=== PATIENT | female | born 1955 | race Two or more races ===

== ENCOUNTER 2019-08-30 11:04 | Emergency (ER) | payer MEDICAID ==
[~2019-08-30] VITALS: Ht 165.1 cm; Wt 102.0 kg
[~2019-08-30 11:04] MED LIST: AMLO10TA80 PO; LISI10TA5 PO; METF-416 PO; OXYB5TAB17 PO
[2019-08-30] MEDS ORDERED: KETOROLAC 30MG/ML VIAL IM ONE (11:30)
[2019-08-30 11:45] VITALS: BP 160/79
== END 2019-08-30 11:47 | disposition home or self-care (01) ==
LOC: ER 11:13
DX: M79.662 Pain in left lower leg (principal); M79.661 Pain in right lower leg; J45.909 Unspecified asthma, uncomplicated; E11.9 Type 2 diabetes mellitus without complications; I10 Essential (primary) hypertension; Z90.710 Acquired absence of both cervix and uterus; Z79.899 Other long term (current) drug therapy
CPT/HCPCS: 96372; 99283; J1885

== ENCOUNTER 2019-09-16 04:11 | Emergency (ER) | payer MEDICAID ==
[~2019-09-16] VITALS: Ht 165.1 cm; Wt 104.0 kg
[2019-09-16 04:16] VITALS: BP 165/175
[2019-09-16] MEDS ORDERED: DEXAMETHASONE 4MG/ML 1ML VIAL IM ONE (06:45)
[2019-09-16] MEDS ORDERED: KETOROLAC 60MG/2ML VIAL IM ONE (06:45)
== END 2019-09-16 08:02 | disposition home or self-care (01) ==
LOC: ER 04:11
DX: M54.42 Lumbago with sciatica, left side (principal)
CPT/HCPCS: 72100; 96372; 99284; J1100; J1885

== ENCOUNTER 2019-12-20 21:26 | Emergency (ER) | payer MEDICAID ==
[~2019-12-20] VITALS: Ht 165.1 cm; Wt 102.0 kg
[2019-12-20] MEDS ORDERED: IBUPROFEN 600MG TABLET PO ONE (22:30)
[2019-12-20 23:43] VITALS: BP 141/74
== END 2019-12-20 23:45 | disposition home or self-care (01) ==
LOC: ER 21:26
DX: J02.9 Acute pharyngitis, unspecified (principal); J45.909 Unspecified asthma, uncomplicated; Z91.041 Radiographic dye allergy status; Z79.899 Other long term (current) drug therapy
CPT/HCPCS: 87070; 87430; 99283

== ENCOUNTER 2019-12-31 03:25 | Emergency (ER) | payer OTHER ==
[2019-12-31 07:55] VITALS: BP 132/78
== END 2019-12-31 07:55 | disposition home or self-care (01) ==
LOC: ER 03:25
DX: K21.9 Gastro-esophageal reflux disease without esophagitis (principal); G89.29 Other chronic pain; M54.9 Dorsalgia, unspecified; J45.909 Unspecified asthma, uncomplicated; Z88.5 Allergy status to narcotic agent; Z91.041 Radiographic dye allergy status; Z79.899 Other long term (current) drug therapy
CPT/HCPCS: 71045; 93005; 99283

== ENCOUNTER → 2020-04-08 | Outpatient (CLI) | payer MEDICAID | END | disposition home or self-care (01) | LOC: LAB 08:58 | PROVIDERS: ATTEND Neurological Surgery | DX: Z01.812 Encounter for preprocedural laboratory examination (principal); Z20.828 Contact with and (suspected) exposure to other viral communicable diseases | CPT/HCPCS: 87426 ==

== ENCOUNTER 2020-04-11 05:20 | Inpatient (IN) | payer MEDICAID ==
[2020-04-11] VITALS (55 sets, daily range): BP systolic 75–259; BP diastolic 28–255
[~2020-04-11] VITALS: Ht 256.5 cm; Wt 101.2 kg
[2020-04-11] MEDS ORDERED: THROMBIN (BOVINE) 5000 UNITS/VIAL TOP ONE (06:17)
[2020-04-11] MEDS ORDERED: BACITRACIN 50,000 UNITS/VIAL ONE (06:18)
[2020-04-11] MEDS ORDERED: LACTATED RINGERS 1,000 ML IV SCH (06:25)
[2020-04-11] MEDS ORDERED: FENTANYL CITRATE/PF 50MCG/ML 2ML VIAL ONE (07:09)
[2020-04-11] MEDS ORDERED: CEFAZOLIN SODIUM 1000MG/VIAL ONE (07:10)
[2020-04-11] MEDS ORDERED: PHENYLEPHRINE HCL 10 MG/ML 1ML (IV VIAL) IV ONE (07:10)
[2020-04-11] MEDS ORDERED: LIDOCAINE HCL 2% JELLY 5ML ONE (07:10)
[2020-04-11] MEDS ORDERED: ONDANSETRON HCL 4MG/2ML INJ ONE (07:10)
[2020-04-11] MEDS ORDERED: PROPOFOL 200MG/20ML VIAL IV ONE (07:10)
[2020-04-11] MEDS ORDERED: METOCLOPRAMIDE HCL 10MG/2ML VIAL ONE (07:10)
[2020-04-11] MEDS ORDERED: MIDAZOLAM HCL 2 MG/2 ML VIAL ONE (07:10)
[2020-04-11] MEDS ORDERED: SODIUM CHLORIDE 0.9% 10ML VIAL ONE (07:10)
[2020-04-11] MEDS ORDERED: EPHEDRINE SULFATE 50MG/ML VIAL ONE (07:11)
[2020-04-11] MEDS ORDERED: LIDOCAINE HCL 1% 20ML VIAL (Pyxis) INJ ONE (07:13)
[2020-04-11] MEDS ORDERED: ROCURONIUM BROMIDE 10MG/ML VIAL 5ML IV ONE ×2 (07:17→08:27)
[2020-04-11] MEDS ORDERED: GLYCOPYRROLATE 0.2 MG/ML 2ML VIAL ONE (07:18)
[2020-04-11] MEDS ORDERED: NEOSTIGMINE METHYLSULFATE 1MG/ML 10 ML VIAL ONE (07:18)
[2020-04-11] MEDS ORDERED: HYDR-4001 PO (07:30)
[2020-04-11] MEDS ORDERED: COR3 PO (07:30)
[2020-04-11] MEDS ORDERED: ALBU90AE IH (07:30)
[2020-04-11] MEDS ORDERED: LISI40TA4 PO (07:30)
[2020-04-11] MEDS ORDERED: UMEC1DIS IH (07:30)
[2020-04-11] MEDS ORDERED: HYDROMORPHONE HCL/PF 2MG/ML CPJ IV PRN (09:45)
[2020-04-11] MEDS ORDERED: ONDANSETRON HCL 4MG/2ML INJ IV PRN (09:45)
[2020-04-11] MEDS: DEXT 5%/LACTATED RINGERS 1,000 ML IV SCH ×2 (10:34→20:45)
[2020-04-11] MEDS ORDERED: HYDROMORPHONE PCA 10MG/50ML IV PRN (10:45)
[2020-04-11] MEDS ORDERED: ONDANSETRON INJ IV PRN (10:45)
[2020-04-11] MEDS ORDERED: NALOXONE INJ IV PRN (10:45)
[2020-04-11] MEDS ORDERED: IPRATROPIUM/ALBUTEROL 0.5-3(2.5)MG/3ML NEB HHN PRN (12:15)
[2020-04-11] MEDS: DEXAMETHASONE 4MG/ML 1ML VIAL IV SCH ×3 (12:30→23:07)
[2020-04-11] MEDS ORDERED: CEFAZOLIN SODIUM 1000MG/VIAL IV SCH (14:00)
[2020-04-11] MEDS: CEFAZOLIN 1000MG PREMIX 50 ML IV SCH (14:13)
[2020-04-11] MEDS: NICARDIPINE 100 MG in SODIUM CHLORIDE 0.9% 60 ML IV PRN ×2 (14:24→23:07)
[2020-04-11] MEDS ORDERED: CEFAZOLIN 1000MG PREMIX 50 ML IV SCH (15:00)
[2020-04-11] MEDS: GUAIFENESIN-DM 200MG-20MG/10ML UDC PO PRN ×2 (15:06→23:07)
[2020-04-11 15:13] LABS: BASOPHILS % 0.5 % (0.0-2.0); CHLORIDE 106 mEq/L (98-107); HEMATOCRIT. 34.8 % (36.0-48.0); HEMOGLOBIN. 11.3 g/dL (12.0-16.0); LYMPHOCYTES % 12.7 % (20.0-50.0); MEAN CORPUSCULAR HEMOGLOBIN 27.6 pg (28.0-32.0); MEAN CORPUSCULAR VOLUME 85.1 fL (81.0-99.0); MEAN PLATELET VOLUME 8.3 fl (7.4-10.4); MONOCYTES % 3.4 % (2.0-8.0); NEUTROPHILS % 83.4 % (40.0-76.0); PLATELET 341 x1000/uL (130-400); RED BLOOD CELL COUNT 4.09 mill/uL (4.2-5.4); RED CELL DISTRIBUTION WIDTH 15.2 % (11.6-14.6)
[2020-04-11] MEDS ORDERED: DEXTROSE 50% WATER 50ML SYRINGE IV PRN (17:00)
[2020-04-11] MEDS: BLOOD SUGAR DIAGNOSTIC STRIP TEST SCH ×2 (18:10→20:33)
[2020-04-11] MEDS: INSULIN LISPRO 100 UNITS/ML SUBCUT SCH ×2 (18:21→20:39)
[2020-04-11] MEDS: CARVEDILOL 3.125 MG TABLET PO SCH (20:40)
[2020-04-11] MEDS: IPRATROPIUM/ALBUTEROL 0.5-3(2.5)MG/3ML NEB HHN SCH (21:05)
[2020-04-12] VITALS (117 sets, daily range): BP systolic 0–281; BP diastolic 0–279
[2020-04-12] MEDS: CEFAZOLIN 1000MG PREMIX 50 ML IV SCH ×2 (00:08→06:52)
[2020-04-12] MEDS: DIPHENHYDRAMINE INJ IV PRN ×3 (00:18→17:40)
[2020-04-12] MEDS: GUAIFENESIN-DM 200MG-20MG/10ML UDC PO PRN (02:30)
[2020-04-12] MEDS: IPRATROPIUM/ALBUTEROL 0.5-3(2.5)MG/3ML NEB HHN SCH ×4 (06:40→21:14)
[2020-04-12] MEDS: BLOOD SUGAR DIAGNOSTIC STRIP TEST SCH ×4 (06:50→21:00)
[2020-04-12] MEDS: DEXAMETHASONE 4MG/ML 1ML VIAL IV SCH ×2 (06:52→11:26)
[2020-04-12] MEDS: INSULIN LISPRO 100 UNITS/ML SUBCUT SCH ×4 (07:05→21:39)
[2020-04-12 07:26] LABS: BASOPHILS % 0.1 % (0.0-2.0); EOSINOPHILS % 0.1 % (0.0-5.0); HEMATOCRIT. 34.8 % (36.0-48.0); HEMOGLOBIN. 11.4 g/dL (12.0-16.0); LYMPHOCYTES % 8.2 % (20.0-50.0); MEAN CORPUSCULAR HEMOGLOBIN 27.7 pg (28.0-32.0); MEAN CORPUSCULAR VOLUME 84.7 fL (81.0-99.0); MEAN PLATELET VOLUME 8.4 fl (7.4-10.4); MONOCYTES % 2.6 % (2.0-8.0); PLATELET 362 x1000/uL (130-400); RED BLOOD CELL COUNT 4.11 mill/uL (4.2-5.4); RED CELL DISTRIBUTION WIDTH 14.8 % (11.6-14.6)
[2020-04-12] MEDS: MORPHINE SULFATE 2 MG/ML CPJ (NOT FOR IM USE) IV PRN ×3 (08:29→17:41)
[2020-04-12] MEDS: AMLODIPINE 10MG TABLET PO SCH (08:30)
[2020-04-12] MEDS: CARVEDILOL 3.125 MG TABLET PO SCH ×2 (08:30→21:31)
[2020-04-12] MEDS: LISINOPRIL 40MG TABLET PO SCH (08:30)
[2020-04-12 08:39] LABS: CHLORIDE 100 mEq/L (98-107)
[2020-04-12 08:45] LABS: PHOSPHORUS 3.5 mg/dL (2.5-4.9)
[2020-04-12 08:46] LABS: LDL CHOLESTEROL 96 mg/dL (5-100); TOTAL IRON BINDING CAPACITY 343 ug/dL (250-450)
[2020-04-12 08:47] LABS: HDL CHOLESTEROL 65 mg/dL (40-59)
[2020-04-12 09:15] LABS: FOLIC ACID (FOLATE) SERUM 12.2 ng/mL (>5.38)
[2020-04-12] MEDS: PROMETHAZINE/DEXTROMETHORPHAN 6.25-15MG/5ML BOTTLE 120ML PO PRN ×2 (10:57→17:45)
[2020-04-12] MEDS ORDERED: PREDNISONE 20MG TABLET PO SCH (11:30)
[2020-04-12] MEDS ORDERED: RACEPINEPHRINE 2.25% 0.5ML NEB VIAL HHN NR (11:37)
[2020-04-12] MEDS: UMECLIDINIUM BROMIDE 1 INH BLST.W.DEV IH SCH (17:45)
[2020-04-12] MEDS: ONDANSETRON HCL 4MG/2ML INJ IV PRN (18:15)
[2020-04-12] MEDS ORDERED: IRON SUCROSE COMPLEX 100 MG/5 ML ML IV NR (20:30)
[2020-04-12] MEDS: DEXT 5%/LACTATED RINGERS 1,000 ML IV SCH (21:29)
[2020-04-13] VITALS (151 sets, daily range): BP systolic 70–155; BP diastolic 46–97
[2020-04-13] MEDS: MORPHINE SULFATE 2 MG/ML CPJ (NOT FOR IM USE) IV PRN ×5 (00:47→22:11)
[2020-04-13] MEDS: DIPHENHYDRAMINE INJ IV PRN ×5 (00:47→22:11)
[2020-04-13] MEDS: ONDANSETRON HCL 4MG/2ML INJ IV PRN ×4 (00:47→22:11)
[2020-04-13] MEDS: IPRATROPIUM/ALBUTEROL 0.5-3(2.5)MG/3ML NEB HHN SCH ×3 (00:52→20:40)
[2020-04-13] MEDS: NICARDIPINE 100 MG in SODIUM CHLORIDE 0.9% 60 ML IV PRN (02:23)
[2020-04-13] MEDS: PROMETHAZINE/DEXTROMETHORPHAN 6.25-15MG/5ML BOTTLE 120ML PO PRN ×3 (02:24→20:54)
[2020-04-13 06:59] LABS: BASOPHILS % 0.2 % (0.0-2.0); HEMATOCRIT. 35.9 % (36.0-48.0); HEMOGLOBIN. 11.9 g/dL (12.0-16.0); LYMPHOCYTES % 7.5 % (20.0-50.0); MEAN CORPUSCULAR HEMOGLOBIN 28.3 pg (28.0-32.0); MEAN CORPUSCULAR VOLUME 85.9 fL (81.0-99.0); MEAN PLATELET VOLUME 8.3 fl (7.4-10.4); MONOCYTES % 5.2 % (2.0-8.0); NEUTROPHILS % 87.1 % (40.0-76.0); PLATELET 402 x1000/uL (130-400); RED BLOOD CELL COUNT 4.18 mill/uL (4.2-5.4); RED CELL DISTRIBUTION WIDTH 14.9 % (11.6-14.6)
[2020-04-13 07:17] LABS: CHLORIDE 100 mEq/L (98-107)
[2020-04-13] MEDS: BLOOD SUGAR DIAGNOSTIC STRIP TEST SCH ×4 (07:30→20:52)
[2020-04-13 07:32] LABS: T4 FREE 1.38 ng/dL (0.76-1.46)
[2020-04-13] MEDS: UMECLIDINIUM BROMIDE 1 INH BLST.W.DEV IH SCH (08:51)
[2020-04-13] MEDS: CARVEDILOL 3.125 MG TABLET PO SCH ×2 (08:52→20:53)
[2020-04-13] MEDS: AMLODIPINE 10MG TABLET PO SCH (08:52)
[2020-04-13] MEDS: LISINOPRIL 40MG TABLET PO SCH (08:53)
[2020-04-13] MEDS: INSULIN LISPRO 100 UNITS/ML SUBCUT SCH ×4 (08:54→21:01)
[2020-04-13] MEDS ORDERED: DIAZEPAM 5 MG TABLET PO SCH (10:00)
[2020-04-13] MEDS: PREDNISONE 20MG TABLET PO SCH ×2 (10:34→18:27)
[2020-04-13] MEDS: DEXT 5%/LACTATED RINGERS 1,000 ML IV SCH ×2 (11:45→22:16)
[2020-04-13] MEDS: DOCUSATE SODIUM 100MG CAPSULE PO SCH (17:00)
[2020-04-14] VITALS (97 sets, daily range): BP systolic 103–180; BP diastolic 47–126
[2020-04-14] MEDS: IPRATROPIUM/ALBUTEROL 0.5-3(2.5)MG/3ML NEB HHN SCH ×2 (00:39→04:30)
[2020-04-14] MEDS: MORPHINE SULFATE 2 MG/ML CPJ (NOT FOR IM USE) IV PRN ×3 (01:25→14:14)
[2020-04-14] MEDS: ONDANSETRON HCL 4MG/2ML INJ IV PRN ×3 (01:25→14:13)
[2020-04-14] MEDS: BLOOD SUGAR DIAGNOSTIC STRIP TEST SCH ×4 (07:30→21:44)
[2020-04-14 07:36] LABS: BASOPHILS % 0.9 % (0.0-2.0); HEMOGLOBIN. 11.4 g/dL (12.0-16.0); LYMPHOCYTES % 7.9 % (20.0-50.0); MEAN CORPUSCULAR HEMOGLOBIN 27.7 pg (28.0-32.0); MEAN CORPUSCULAR VOLUME 85.1 fL (81.0-99.0); MEAN PLATELET VOLUME 8.3 fl (7.4-10.4); MONOCYTES % 4.1 % (2.0-8.0); NEUTROPHILS % 87.1 % (40.0-76.0); PLATELET 365 x1000/uL (130-400); RED BLOOD CELL COUNT 4.12 mill/uL (4.2-5.4); RED CELL DISTRIBUTION WIDTH 15.1 % (11.6-14.6)
[2020-04-14 08:00] LABS: CHLORIDE 104 mEq/L (98-107)
[2020-04-14] MEDS ORDERED: CLONIDINE 0.1MG TABLET PO PRN (08:00)
[2020-04-14] MEDS: PREDNISONE 20MG TABLET PO SCH ×2 (09:11→18:23)
[2020-04-14] MEDS: DOCUSATE SODIUM 100MG CAPSULE PO SCH ×2 (09:11→18:24)
[2020-04-14] MEDS: AMLODIPINE 10MG TABLET PO SCH (09:12)
[2020-04-14] MEDS: LISINOPRIL 40MG TABLET PO SCH (09:18)
[2020-04-14] MEDS: CARVEDILOL 3.125 MG TABLET PO SCH ×2 (09:18→21:41)
[2020-04-14] MEDS: UMECLIDINIUM BROMIDE 1 INH BLST.W.DEV IH SCH (09:19)
[2020-04-14] MEDS: INSULIN LISPRO 100 UNITS/ML SUBCUT SCH ×4 (10:07→22:38)
[2020-04-14] MEDS ORDERED: HYDROCODONE/ACETAMINOPHEN 5/325MG TABLET PO PRN (16:45)
[2020-04-14] MEDS: TRAMADOL 50MG TABLET PO PRN (18:30)
[2020-04-14] MEDS: PROMETHAZINE/DEXTROMETHORPHAN 6.25-15MG/5ML BOTTLE 120ML PO PRN (21:42)
[2020-04-15] VITALS (7 sets, daily range): BP systolic 105–152; BP diastolic 57–69
[2020-04-15] MEDS: TRAMADOL 50MG TABLET PO PRN ×2 (04:16→12:26)
[2020-04-15] MEDS: BLOOD SUGAR DIAGNOSTIC STRIP TEST SCH ×2 (07:21→11:51)
[2020-04-15] MEDS: INSULIN LISPRO 100 UNITS/ML SUBCUT SCH ×2 (07:50→11:51)
[2020-04-15 07:52] LABS: BASOPHILS % 0.8 % (0.0-2.0); HEMATOCRIT. 36.9 % (36.0-48.0); HEMOGLOBIN. 11.9 g/dL (12.0-16.0); LYMPHOCYTES % 16.2 % (20.0-50.0); MEAN CORPUSCULAR HEMOGLOBIN 27.3 pg (28.0-32.0); MEAN CORPUSCULAR VOLUME 84.9 fL (81.0-99.0); MEAN PLATELET VOLUME 7.9 fl (7.4-10.4); MONOCYTES % 5.7 % (2.0-8.0); NEUTROPHILS % 77.3 % (40.0-76.0); PLATELET 389 x1000/uL (130-400); RED BLOOD CELL COUNT 4.34 mill/uL (4.2-5.4); RED CELL DISTRIBUTION WIDTH 14.7 % (11.6-14.6)
[2020-04-15 08:04] LABS: CHLORIDE 101 mEq/L (98-107)
[2020-04-15] MEDS: LISINOPRIL 40MG TABLET PO SCH (09:40)
[2020-04-15] MEDS: DOCUSATE SODIUM 100MG CAPSULE PO SCH (09:40)
[2020-04-15] MEDS: AMLODIPINE 10MG TABLET PO SCH (09:40)
[2020-04-15] MEDS: PREDNISONE 20MG TABLET PO SCH (09:40)
[2020-04-15] MEDS: CARVEDILOL 3.125 MG TABLET PO SCH (09:40)
[2020-04-15] MEDS ORDERED: PHEN177S41 MT (11:08)
[2020-04-15] MEDS ORDERED: GUAI600T44 MT (11:08)
[2020-04-15] MEDS ORDERED: P20 MT (11:08)
[2020-04-15] MEDS ORDERED: BENZ-16 MT (11:08)
[2020-04-15] MEDS: PROMETHAZINE/DEXTROMETHORPHAN 6.25-15MG/5ML BOTTLE 120ML PO PRN (11:40)
[2020-04-15] MEDS: UMECLIDINIUM BROMIDE 1 INH BLST.W.DEV IH SCH (11:40)
== END 2020-04-15 17:13 | disposition home or self-care (01) | DRG 321 ==
LOC: OR 05:20 → 5EST 05:21 → 6EST 04-14 18:17
PROVIDERS: ADMIT Neurological Surgery; ATTEND Neurological Surgery
PROC: 0RG20A0 Fusion of 2 or more Cervical Vertebral Joints with Interbody Fusion Device, Anterior Approach, Anterior Column, Open Approach (ICD-10-PCS; principal; 2020-04-11)
PROC: 0RB30ZZ Excision of Cervical Vertebral Disc, Open Approach (ICD-10-PCS; 2020-04-11)
PROC: 01N10ZZ Release Cervical Nerve, Open Approach (ICD-10-PCS; 2020-04-11)
PROC: 4A11X4G Monitoring of Peripheral Nervous Electrical Activity, Intraoperative, External Approach (ICD-10-PCS; 2020-04-11)
DX: M47.12 Other spondylosis with myelopathy, cervical region (principal); G82.50 Quadriplegia, unspecified; I10 Essential (primary) hypertension; E66.9 Obesity, unspecified; D64.9 Anemia, unspecified; R13.10 Dysphagia, unspecified; E11.9 Type 2 diabetes mellitus without complications; M47.22 Other spondylosis with radiculopathy, cervical region; J45.909 Unspecified asthma, uncomplicated; M25.78 Osteophyte, vertebrae; Z79.84 Long term (current) use of oral hypoglycemic drugs; Z90.711 Acquired absence of uterus with remaining cervical stump; Z68.1 Body mass index [BMI] 19.9 or less, adult
CPT/HCPCS: 36415; 71045; 72040; 72141; 76000; 80048; 80053; 80061; 82607; 82728; 82746; 82962; 83036; 83540; 83550; 83735; 84100; 84439; 84443; 84481; 85025; 86850; 86900; 88311; 97110; 97116; 97162; 97166; 97530; 97535; C1713; J0690; J1100; J1170; J1200; J1815; J2250; J2270; J2370; J2405; J2704; J2710; J2765; J3010; J3490; J7050; J7121; J7512; L0172; C1762

== ENCOUNTER 2020-06-20 12:35 | Inpatient (IN) | payer MEDICAID ==
[~2020-06-20] VITALS: Ht 167.6 cm; Wt 108.9 kg
[~2020-06-20 12:35] MED LIST changes: +ALBU90AE IH; +BENZ-16 MT; +COR3 PO; +GUAI600T44 MT; -LISI10TA5 PO; +LISI40TA13 PO; -OXYB5TAB17 PO; +P20 MT; +PHEN177S41 MT; +UMEC1DIS IH
[2020-06-20] MEDS ORDERED: METHOCARBAMOL 500MG TABLET PO ONE (13:45)
[2020-06-20] MEDS ORDERED: GADOTERATE MEGLUMINE 5 MMOL/10 ML VIAL IV ONE (14:05)
[2020-06-20 14:07] LABS: EOSINOPHILS % 0.4 % (0.0-5.0); HEMOGLOBIN. 13.3 g/dL (12.0-16.0); LYMPHOCYTES % 34.6 % (20.0-50.0); MEAN CORPUSCULAR HEMOGLOBIN 28.3 pg (28.0-32.0); MEAN CORPUSCULAR VOLUME 87.2 fL (81.0-99.0); MEAN PLATELET VOLUME 7.9 fl (7.4-10.4); MONOCYTES % 3.4 % (2.0-8.0); NEUTROPHILS % 60.6 % (40.0-76.0); PLATELET 329 x1000/uL (130-400); RED CELL DISTRIBUTION WIDTH 15.5 % (11.6-14.6)
[2020-06-20 14:14] LABS: CHLORIDE 100 mEq/L (98-107)
[2020-06-20] MEDS ORDERED: MORPHINE SULFATE 4 MG/ML CPJ (NOT FOR IM USE) IV ONE (15:45)
[2020-06-20 16:12] LABS: INR 1.1; PARTIAL THROMBOPLASTIN TIME 23.7 sec (23.4-31.0); PROTHROMBIN TIME 11.9 sec (9.6-11.0)
[2020-06-20] MEDS ORDERED: GUAIFENESIN 200MG/10ML SUGAR FREE UDC PO PRN (20:30)
[2020-06-20] MEDS ORDERED: NA PHOS,M-B/NA PHOS,DI-BA ENEMA 118ML PR PRN (20:30)
[2020-06-20] MEDS ORDERED: DOCUSATE SODIUM 100MG CAPSULE PO PRN (20:30)
[2020-06-20] MEDS ORDERED: MORPHINE SULFATE 2 MG/ML CPJ (NOT FOR IM USE) IV PRN (20:30)
[2020-06-20] MEDS ORDERED: LORAZEPAM 2MG/ML CPJ IV PRN (20:30)
[2020-06-20] MEDS ORDERED: MAGNESIUM/ALUMINUM HYDROXIDE/SIMETHICONE 30ML UDC PO PRN (20:30)
[2020-06-20] MEDS ORDERED: ENOXAPARIN 40MG/0.4ML SYR SUBCUT SCH (20:30)
[2020-06-20] MEDS: DIPHENHYDRAMINE 50MG/ML VIAL IV PRN (20:32)
[2020-06-20] MEDS: ONDANSETRON HCL 4MG/2ML INJ IV PRN (20:34)
[2020-06-20] MEDS: ENOXAPARIN 30MG/0.3ML SYR SUBCUT SCH (20:36)
[2020-06-20 22:41] VITALS: BP 165/80
[2020-06-20] MEDS: CLONIDINE 0.1MG TABLET PO PRN (22:53)
[2020-06-20 23:09] LABS: CHLORIDE 103 mEq/L (98-107)
[2020-06-20] MEDS: HYDROMORPHONE HCL/PF 2MG/ML CPJ IV PRN (23:17)
[2020-06-21] VITALS: BP 111/63
[2020-06-21] MEDS ORDERED: DEXTROSE 50% WATER 50ML SYRINGE IV PRN (01:00)
[2020-06-21 01:26] LABS: CLARITY URINE CLEAR (CLEAR); COLOR URINE YELLOW (YELLOW); KETONES URINE TRACE (NEGATIVE); LEUKOCYTE ESTERASE URINE TRACE (NEGATIVE); NITRITE URINE NEGATIVE (NEGATIVE); OCCULT BLOOD URINE NEGATIVE (NEGATIVE); PROTEIN URINE NEGATIVE (NEGATIVE); SPECIFIC GRAVITY URINE 1.025 (1.005-1.030); UROBILINOGEN URINE 0.2 E.U./dL (0.2-1.0)
[2020-06-21] MEDS: HYDROMORPHONE HCL/PF 2MG/ML CPJ IV PRN ×7 (03:53→23:47)
[2020-06-21 04:00] VITALS: BP 119/62
[2020-06-21] MEDS: BLOOD SUGAR DIAGNOSTIC STRIP TEST SCH ×4 (05:41→20:34)
[2020-06-21] MEDS: INSULIN LISPRO 100 UNITS/ML SUBCUT SCH ×4 (06:15→20:40)
[2020-06-21 06:53] LABS: BASOPHILS % 0.3 % (0.0-2.0); EOSINOPHILS % 0.5 % (0.0-5.0); HEMATOCRIT. 36.7 % (36.0-48.0); HEMOGLOBIN. 12.1 g/dL (12.0-16.0); LYMPHOCYTES % 39.8 % (20.0-50.0); MEAN CORPUSCULAR HEMOGLOBIN 28.8 pg (28.0-32.0); MEAN CORPUSCULAR VOLUME 87.2 fL (81.0-99.0); MEAN PLATELET VOLUME 7.9 fl (7.4-10.4); MONOCYTES % 4.9 % (2.0-8.0); NEUTROPHILS % 54.5 % (40.0-76.0); PLATELET 324 x1000/uL (130-400); RED BLOOD CELL COUNT 4.21 mill/uL (4.2-5.4); RED CELL DISTRIBUTION WIDTH 15.5 % (11.6-14.6)
[2020-06-21 07:02] LABS: CHLORIDE 100 mEq/L (98-107)
[2020-06-21 07:40] LABS: HDL CHOLESTEROL 57 mg/dL (40-59); LDL CHOLESTEROL 77 mg/dL (5-100); T4 FREE 1.65 ng/dL (0.76-1.46)
[2020-06-21 08:00] VITALS: BP 171/85
[2020-06-21] MEDS: ENOXAPARIN 30MG/0.3ML SYR SUBCUT SCH (08:44)
[2020-06-21] MEDS: CLONIDINE 0.1MG TABLET PO PRN (08:45)
[2020-06-21 12:00] VITALS: BP 133/67
[2020-06-21 16:00] VITALS: BP 139/46
[2020-06-21] MEDS: DIPHENHYDRAMINE 50MG/ML VIAL IV PRN (19:38)
[2020-06-21 20:00] VITALS: BP 153/64
[2020-06-21] MEDS: FLUTICASONE/VILANTEROL 200-25 BLST.W.DEV ORI SCH (22:38)
[2020-06-22] VITALS (57 sets, daily range): BP systolic 97–159; BP diastolic 42–78
[2020-06-22] MEDS: DIPHENHYDRAMINE 50MG/ML VIAL IV PRN (00:35)
[2020-06-22] MEDS: HYDROMORPHONE HCL/PF 2MG/ML CPJ IV PRN ×4 (02:40→17:46)
[2020-06-22] MEDS: BLOOD SUGAR DIAGNOSTIC STRIP TEST SCH ×4 (06:15→20:54)
[2020-06-22] MEDS: INSULIN LISPRO 100 UNITS/ML SUBCUT SCH ×4 (06:23→21:02)
[2020-06-22 07:01] LABS: BASOPHILS % 0.7 % (0.0-2.0); EOSINOPHILS % 0.6 % (0.0-5.0); HEMATOCRIT. 37.7 % (36.0-48.0); HEMOGLOBIN. 12.6 g/dL (12.0-16.0); LYMPHOCYTES % 35.7 % (20.0-50.0); MEAN PLATELET VOLUME 7.9 fl (7.4-10.4); MONOCYTES % 5.2 % (2.0-8.0); NEUTROPHILS % 57.8 % (40.0-76.0); PLATELET 311 x1000/uL (130-400); RED BLOOD CELL COUNT 4.33 mill/uL (4.2-5.4); RED CELL DISTRIBUTION WIDTH 14.8 % (11.6-14.6)
[2020-06-22] MEDS ORDERED: BACITRACIN 50,000 UNITS/VIAL ONE (07:01)
[2020-06-22] MEDS ORDERED: THROMBIN (BOVINE) 5000 UNITS/VIAL TOP ONE ×2 (07:01→10:36)
[2020-06-22 07:27] LABS: CHLORIDE 98 mEq/L (98-107)
[2020-06-22] MEDS ORDERED: ROCURONIUM BROMIDE 10MG/ML VIAL 5ML IV ONE (08:02)
[2020-06-22] MEDS ORDERED: HYDROMORPHONE HCL/PF 2MG/ML (OR) ONE (08:02)
[2020-06-22] MEDS ORDERED: DEXAMETHASONE 4MG/ML 1ML VIAL ONE (08:03)
[2020-06-22] MEDS ORDERED: CEFAZOLIN SODIUM 1000MG/VIAL ONE (08:03)
[2020-06-22] MEDS ORDERED: METOPROLOL TARTRATE 5MG/5ML VIAL IV ONE (08:41)
[2020-06-22] MEDS ORDERED: VECURONIUM BROMIDE 10 MG/VIAL IV ONE (08:51)
[2020-06-22] MEDS ORDERED: ALBUMIN HUMAN 25GM/100ML (25%) IV ONE (09:55)
[2020-06-22] MEDS ORDERED: GLYCOPYRROLATE 0.2 MG/ML 2ML VIAL ONE ×2 (10:49→10:56)
[2020-06-22] MEDS ORDERED: NEOSTIGMINE METHYLSULFATE 1MG/ML 10 ML VIAL ONE (10:49)
[2020-06-22] MEDS ORDERED: HYDROMORPHONE HCL/PF 2MG/ML CPJ IV PRN (11:15)
[2020-06-22] MEDS ORDERED: LABETALOL HCL 5MG/ML VIAL 20ML IV ONE (11:17)
[2020-06-22] MEDS ORDERED: HYDRALAZINE 20MG/ML VIAL ONE (11:17)
[2020-06-22] MEDS ORDERED: MIDAZOLAM HCL 5 MG/5 ML VIAL ONE (11:24)
[2020-06-22] MEDS ORDERED: CALCIUM CHLORIDE 1GM/10ML SYR IV ONE (11:29)
[2020-06-22 11:51] LABS: BG BASE EXCESS -0.4 mmol/L (-2.0-2.0); BG CARBOXYHEMOGLOBIN 0.3 % (0.5-1.5); BG DEOXYHEMOGLOBIN 1.2 % (0.0-5.0); BG FRACTION INSPIRED OXYGEN 100; BG HCO3 ACT 25.8 mmol/L (22.0-26.0); BG OXYGEN SATURATION 98.8 % (92.0-98.5); BG OXYHEMOGLOBIN 98.5 % (94.0-97.0); BG PCO2 49.8 mmHg (35.0-45.0); BG PH 7.333 (7.350-7.450); BG PO2 335.7 mmHg (75.0-100.0); BG SAMPLE SITE ALINE; BG TOTAL HEMOGLOBIN 9.9 g/dL (12.0-18.0); BG VENT MODE VENT - SIMV
[2020-06-22] MEDS: FLUTICASONE/VILANTEROL 200-25 BLST.W.DEV ORI SCH ×2 (12:08→16:03)
[2020-06-22] MEDS: NICARDIPINE 100 MG in SODIUM CHLORIDE 0.9% 60 ML IV PRN ×2 (12:09→19:14)
[2020-06-22] MEDS ORDERED: DIPHENHYDRAMINE INJ IV PRN (12:30)
[2020-06-22] MEDS ORDERED: NALOXONE INJ IV PRN (12:30)
[2020-06-22] MEDS ORDERED: HYDROMORPHONE PCA 10MG/50ML IV PRN (12:30)
[2020-06-22] MEDS: DEXT 5%/LACTATED RINGERS 1,000 ML IV SCH ×2 (12:48→17:55)
[2020-06-22] MEDS: PROPOFOL 10MG/ML 100ML 100 ML IV PRN ×3 (13:15→22:48)
[2020-06-22] MEDS ORDERED: CEFAZOLIN SODIUM 1000MG/VIAL IV SCH (14:00)
[2020-06-22] MEDS: CEFAZOLIN 1000MG PREMIX 50 ML IV SCH ×2 (14:16→22:46)
[2020-06-23] VITALS (95 sets, daily range): BP systolic 69–166; BP diastolic 31–137
[2020-06-23] MEDS: NICARDIPINE 100 MG in SODIUM CHLORIDE 0.9% 60 ML IV PRN ×3 (00:28→19:59)
[2020-06-23] MEDS: HYDROMORPHONE HCL/PF 2MG/ML CPJ IV PRN ×4 (00:49→17:36)
[2020-06-23] MEDS: DEXT 5%/LACTATED RINGERS 1,000 ML IV SCH ×4 (00:54→12:10)
[2020-06-23] MEDS: PROPOFOL 10MG/ML 100ML 100 ML IV PRN ×6 (04:27→23:23)
[2020-06-23] MEDS: BLOOD SUGAR DIAGNOSTIC STRIP TEST SCH ×4 (05:53→20:15)
[2020-06-23] MEDS: CEFAZOLIN 1000MG PREMIX 50 ML IV SCH ×3 (05:58→21:01)
[2020-06-23] MEDS: INSULIN LISPRO 100 UNITS/ML SUBCUT SCH ×4 (05:59→21:01)
[2020-06-23] MEDS ORDERED: RACEPINEPHRINE 2.25% 0.5ML NEB VIAL HHN PRN (08:15)
[2020-06-23 08:56] LABS: BG BASE EXCESS 1.2 mmol/L (-2.0-2.0); BG CARBOXYHEMOGLOBIN 0.3 % (0.5-1.5); BG DEOXYHEMOGLOBIN 1.9 % (0.0-5.0); BG FRACTION INSPIRED OXYGEN 55; BG HCO3 ACT 25.1 mmol/L (22.0-26.0); BG METHEMOGLOBIN 0.2 % (0.0-1.5); BG OXYGEN SATURATION 98.1 % (92.0-98.5); BG OXYHEMOGLOBIN 97.6 % (94.0-97.0); BG PO2 146.4 mmHg (75.0-100.0); BG SAMPLE SITE ALINE; BG TOTAL HEMOGLOBIN 8.8 g/dL (12.0-18.0); BG VENT MODE VENT - AC
[2020-06-23] MEDS: FLUTICASONE/VILANTEROL 200-25 BLST.W.DEV ORI SCH ×2 (09:00→17:00)
[2020-06-23] MEDS ORDERED: PROPOFOL 10MG/ML 100ML 100 ML IV PRN (11:45)
[2020-06-23] MEDS ORDERED: METHYLPREDNISOLONE SOD SUCC 40 MG/ML VIAL IV SCH (12:00)
[2020-06-23] MEDS ORDERED: PANTOPRAZOLE SODIUM 40 MG/VIAL IV SCH (13:45)
[2020-06-23] MEDS: METHYLPREDNISOLONE SOD SUCC 125 MG/2 ML VIAL IV SCH ×2 (14:42→21:01)
[2020-06-23] MEDS ORDERED: SORBITOL 70% SOLN 30ML PO NR (17:15)
[2020-06-23 19:06] LABS: TOTAL IRON BINDING CAPACITY 234 ug/dL (250-450)
[2020-06-23 19:20] LABS: FOLIC ACID (FOLATE) SERUM 7.5 ng/mL (>5.38)
[2020-06-23] MEDS: LACTULOSE 20G/30ML UDC PO SCH (20:09)
[2020-06-23] MEDS: SUCRALFATE 1 G/10 ML UDC PO SCH (20:09)
[2020-06-23] MEDS: IPRATROPIUM/ALBUTEROL 0.5-3(2.5)MG/3ML NEB NEB PRN (20:38)
[2020-06-24] VITALS (99 sets, daily range): BP systolic 69–168; BP diastolic 16–162
[2020-06-24] MEDS: IPRATROPIUM/ALBUTEROL 0.5-3(2.5)MG/3ML NEB NEB PRN ×3 (00:19→08:25)
[2020-06-24] MEDS: HYDROMORPHONE HCL/PF 2MG/ML CPJ IV PRN ×4 (00:29→21:51)
[2020-06-24] MEDS: PROPOFOL 10MG/ML 100ML 100 ML IV PRN ×7 (03:28→22:53)
[2020-06-24 05:19] LABS: BASOPHILS % 0.1 % (0.0-2.0); LYMPHOCYTES % 7.1 % (20.0-50.0); MEAN CORPUSCULAR HEMOGLOBIN 27.6 pg (28.0-32.0); MEAN CORPUSCULAR VOLUME 88.9 fL (81.0-99.0); MEAN PLATELET VOLUME 7.7 fl (7.4-10.4); MONOCYTES % 3.9 % (2.0-8.0); NEUTROPHILS % 88.9 % (40.0-76.0); PLATELET 197 x1000/uL (130-400); RED CELL DISTRIBUTION WIDTH 15.2 % (11.6-14.6)
[2020-06-24 05:30] LABS: CHLORIDE 110 mEq/L (98-107)
[2020-06-24] MEDS: SUCRALFATE 1 G/10 ML UDC PO SCH ×4 (05:31→21:49)
[2020-06-24] MEDS: BLOOD SUGAR DIAGNOSTIC STRIP TEST SCH ×4 (05:32→21:33)
[2020-06-24] MEDS: CEFAZOLIN 1000MG PREMIX 50 ML IV SCH ×3 (05:43→22:03)
[2020-06-24] MEDS: METHYLPREDNISOLONE SOD SUCC 125 MG/2 ML VIAL IV SCH ×3 (05:43→22:03)
[2020-06-24 05:53] LABS: HEMATOCRIT. 19.6 % (36.0-48.0); HEMOGLOBIN. 6.1 g/dL (12.0-16.0)
[2020-06-24] MEDS: INSULIN LISPRO 100 UNITS/ML SUBCUT SCH ×4 (05:55→21:50)
[2020-06-24] MEDS: NICARDIPINE 100 MG in SODIUM CHLORIDE 0.9% 60 ML IV PRN (06:23)
[2020-06-24 08:18] LABS: BG CARBOXYHEMOGLOBIN 0.3 % (0.5-1.5); BG DEOXYHEMOGLOBIN 3.4 % (0.0-5.0); BG HCO3 ACT 23.1 mmol/L (22.0-26.0); BG METHEMOGLOBIN 0.3 % (0.0-1.5); BG OXYGEN SATURATION 96.6 % (92.0-98.5); BG PCO2 35.4 mmHg (35.0-45.0); BG PH 7.432 (7.350-7.450); BG PO2 94.2 mmHg (75.0-100.0); BG SAMPLE SITE ALINE; BG TOTAL HEMOGLOBIN 8.6 g/dL (12.0-18.0); BG VENT MODE VENT - AC
[2020-06-24] MEDS: PANTOPRAZOLE SODIUM 40 MG/VIAL IV SCH ×2 (09:15→17:15)
[2020-06-24] MEDS: DEXT 5%/LACTATED RINGERS 1,000 ML IV SCH ×2 (11:50→20:14)
[2020-06-24] MEDS: BUDESONIDE 0.5MG/2ML NEB HHN SCH (12:10)
[2020-06-24] MEDS: IPRATROPIUM/ALBUTEROL 0.5-3(2.5)MG/3ML NEB HHN SCH ×3 (12:10→20:12)
[2020-06-24] MEDS ORDERED: POTASSIUM CHLORIDE 20MEQ/PACKET PO NR (13:00)
[2020-06-24] MEDS ORDERED: POTASSIUM CHLORIDE INJ 40 MEQ in DEXT 5% WATER 250 ML IV SCH (14:30)
[2020-06-24 15:33] LABS: HEMATOCRIT. 26.7 % (36.0-48.0); HEMOGLOBIN. 8.7 g/dL (12.0-16.0); MEAN CORPUSCULAR HEMOGLOBIN 28.6 pg (28.0-32.0); MEAN CORPUSCULAR VOLUME 87.6 fL (81.0-99.0); MEAN PLATELET VOLUME 7.8 fl (7.4-10.4); PLATELET 213 x1000/uL (130-400); RED BLOOD CELL COUNT 3.05 mill/uL (4.2-5.4); RED CELL DISTRIBUTION WIDTH 15.2 % (11.6-14.6)
[2020-06-24 16:37] LABS: PLATELET ESTIMATE NORMAL
[2020-06-24] MEDS ORDERED: SORBITOL 70% SOLN 30ML PO NR (18:30)
[2020-06-24] MEDS: DOCUSATE SODIUM SUGAR FREE 100MG/10ML UDC PO SCH (20:14)
[2020-06-24] MEDS: LACTULOSE 20G/30ML UDC PO SCH (21:49)
[2020-06-24] MEDS: ACETAMINOPHEN 325MG TABLET PO PRN (21:53)
[2020-06-25] VITALS (100 sets, daily range): BP systolic 81–173; BP diastolic 40–104
[2020-06-25] MEDS: IPRATROPIUM/ALBUTEROL 0.5-3(2.5)MG/3ML NEB HHN SCH ×6 (00:14→20:34)
[2020-06-25] MEDS: BUDESONIDE 0.5MG/2ML NEB HHN SCH ×3 (00:14→20:34)
[2020-06-25 00:24] LABS: HEMATOCRIT 28.5 % (36.0-48.0); HEMOGLOBIN 9.2 g/dL (12.0-16.0)
[2020-06-25] MEDS: PROPOFOL 10MG/ML 100ML 100 ML IV PRN ×5 (02:06→20:43)
[2020-06-25] MEDS: DEXT 5%/LACTATED RINGERS 1,000 ML IV SCH ×2 (04:28→14:51)
[2020-06-25] MEDS: NICARDIPINE 100 MG in SODIUM CHLORIDE 0.9% 60 ML IV PRN (04:28)
[2020-06-25] MEDS ORDERED: BLOOD SUGAR DIAGNOSTIC STRIP TEST SCH (05:00)
[2020-06-25 05:28] LABS: HEMATOCRIT. 28.5 % (36.0-48.0); HEMOGLOBIN. 9.3 g/dL (12.0-16.0); MEAN CORPUSCULAR HEMOGLOBIN 28.3 pg (28.0-32.0); MEAN CORPUSCULAR VOLUME 86.5 fL (81.0-99.0); MEAN PLATELET VOLUME 7.9 fl (7.4-10.4); PLATELET 261 x1000/uL (130-400); RED CELL DISTRIBUTION WIDTH 15.5 % (11.6-14.6)
[2020-06-25 05:31] LABS: CHLORIDE 103 mEq/L (98-107)
[2020-06-25] MEDS: METHYLPREDNISOLONE SOD SUCC 125 MG/2 ML VIAL IV SCH (05:31)
[2020-06-25] MEDS: CEFAZOLIN 1000MG PREMIX 50 ML IV SCH (05:31)
[2020-06-25] MEDS: BLOOD SUGAR DIAGNOSTIC STRIP TEST SCH ×3 (05:32→17:30)
[2020-06-25] MEDS: SUCRALFATE 1 G/10 ML UDC PO SCH ×4 (05:32→20:55)
[2020-06-25] MEDS: INSULIN LISPRO 100 UNITS/ML SUBCUT SCH ×3 (05:32→18:42)
[2020-06-25] MEDS: HYDROMORPHONE HCL/PF 2MG/ML CPJ IV PRN ×4 (08:56→23:33)
[2020-06-25 09:10] LABS: BG BASE EXCESS 0.9 mmol/L (-2.0-2.0); BG CARBOXYHEMOGLOBIN 0.3 % (0.5-1.5); BG DEOXYHEMOGLOBIN 2.4 % (0.0-5.0); BG FRACTION INSPIRED OXYGEN 35; BG HCO3 ACT 25.1 mmol/L (22.0-26.0); BG METHEMOGLOBIN 0.2 % (0.0-1.5); BG OXYGEN SATURATION 97.6 % (92.0-98.5); BG OXYHEMOGLOBIN 97.1 % (94.0-97.0); BG PCO2 38.3 mmHg (35.0-45.0); BG PH 7.435 (7.350-7.450); BG PO2 107.8 mmHg (75.0-100.0); BG SAMPLE SITE ALINE; BG TOTAL RESPIRATORY RATE 19 b/min; BG VENT MODE VENT - AC
[2020-06-25] MEDS: PANTOPRAZOLE SODIUM 40 MG/VIAL IV SCH ×2 (09:15→17:19)
[2020-06-25] MEDS: DOCUSATE SODIUM SUGAR FREE 100MG/10ML UDC PO SCH ×2 (09:15→18:41)
[2020-06-25] MEDS ORDERED: PROPOFOL 10MG/ML 100ML 100 ML IV PRN (10:45)
[2020-06-25] MEDS ORDERED: CEFTRIAXONE 2 G PREMIX 50 ML IV SCH (11:00)
[2020-06-25 11:48] LABS: PLATELET ESTIMATE NORMAL
[2020-06-25 12:57] LABS: HEMOGLOBIN 9.1 g/dL (12.0-16.0)
[2020-06-25] MEDS: METRONIDAZOLE 500 MG PREMIX 100 ML IV SCH ×2 (14:01→21:03)
[2020-06-25] MEDS: CEFTRIAXONE 1,000 MG in DEXTROSE 5% WATER 50 ML IV SCH (14:01)
[2020-06-25] MEDS: METHYLPREDNISOLONE SOD SUCC 40 MG/ML VIAL IV SCH ×2 (14:52→21:03)
[2020-06-25] MEDS: FERROUS SULFATE 300MG/5ML UDC NG SCH (17:19)
[2020-06-25 18:12] LABS: HEMATOCRIT 26.9 % (36.0-48.0); HEMOGLOBIN 8.7 g/dL (12.0-16.0)
[2020-06-25] MEDS: LACTULOSE 20G/30ML UDC PO SCH (20:55)
[2020-06-26] VITALS (99 sets, daily range): BP systolic 80–155; BP diastolic 38–117
[2020-06-26] MEDS: BLOOD SUGAR DIAGNOSTIC STRIP TEST SCH ×5 (00:09→23:41)
[2020-06-26] MEDS: INSULIN LISPRO 100 UNITS/ML SUBCUT SCH ×5 (00:12→23:41)
[2020-06-26] MEDS: PROPOFOL 10MG/ML 100ML 100 ML IV PRN ×6 (00:19→20:26)
[2020-06-26] MEDS: DEXT 5%/LACTATED RINGERS 1,000 ML IV SCH ×3 (00:36→23:40)
[2020-06-26 00:38] LABS: HEMATOCRIT 25.8 % (36.0-48.0); HEMOGLOBIN 8.4 g/dL (12.0-16.0)
[2020-06-26] MEDS: NICARDIPINE 100 MG in SODIUM CHLORIDE 0.9% 60 ML IV PRN ×3 (00:51→20:29)
[2020-06-26] MEDS: IPRATROPIUM/ALBUTEROL 0.5-3(2.5)MG/3ML NEB HHN SCH ×6 (01:17→19:51)
[2020-06-26 04:50] LABS: HEMATOCRIT. 26.8 % (36.0-48.0); HEMOGLOBIN. 8.5 g/dL (12.0-16.0); MEAN CORPUSCULAR HEMOGLOBIN 27.6 pg (28.0-32.0); MEAN CORPUSCULAR VOLUME 87.1 fL (81.0-99.0); MEAN PLATELET VOLUME 7.8 fl (7.4-10.4); PLATELET 247 x1000/uL (130-400); RED BLOOD CELL COUNT 3.08 mill/uL (4.2-5.4); RED CELL DISTRIBUTION WIDTH 15.4 % (11.6-14.6)
[2020-06-26 05:01] LABS: CHLORIDE 105 mEq/L (98-107)
[2020-06-26] MEDS: METRONIDAZOLE 500 MG PREMIX 100 ML IV SCH ×3 (05:45→21:00)
[2020-06-26] MEDS: SUCRALFATE 1 G/10 ML UDC PO SCH ×4 (05:45→21:00)
[2020-06-26] MEDS: METHYLPREDNISOLONE SOD SUCC 40 MG/ML VIAL IV SCH ×4 (05:45→23:27)
[2020-06-26 06:03] LABS: INR 1.1; PROTHROMBIN TIME 11.3 sec (9.6-11.0)
[2020-06-26] MEDS: HYDROMORPHONE HCL/PF 2MG/ML CPJ IV PRN ×3 (06:36→18:11)
[2020-06-26] MEDS: BUDESONIDE 0.5MG/2ML NEB HHN SCH ×2 (07:38→19:51)
[2020-06-26] MEDS: ASCORBIC ACID 500 MG TABLET NG SCH (08:25)
[2020-06-26] MEDS: DOCUSATE SODIUM SUGAR FREE 100MG/10ML UDC PO SCH ×2 (08:25→17:29)
[2020-06-26] MEDS: FERROUS SULFATE 300MG/5ML UDC NG SCH ×2 (08:25→17:29)
[2020-06-26] MEDS: PANTOPRAZOLE SODIUM 40 MG/VIAL IV SCH ×2 (08:31→17:29)
[2020-06-26 08:48] LABS: BG BASE EXCESS 2.6 mmol/L (-2.0-2.0); BG CARBOXYHEMOGLOBIN 0.3 % (0.5-1.5); BG DEOXYHEMOGLOBIN 2.4 % (0.0-5.0); BG FRACTION INSPIRED OXYGEN 35; BG HCO3 ACT 27.2 mmol/L (22.0-26.0); BG METHEMOGLOBIN 0.3 % (0.0-1.5); BG OXYGEN SATURATION 97.6 % (92.0-98.5); BG PCO2 42.2 mmHg (35.0-45.0); BG PH 7.427 (7.350-7.450); BG PO2 111.3 mmHg (75.0-100.0); BG SAMPLE SITE ALINE; BG TOTAL HEMOGLOBIN 8.7 g/dL (12.0-18.0); BG TOTAL RESPIRATORY RATE 13 b/min; BG VENT MODE VENT - AC
[2020-06-26 09:44] LABS: PLATELET ESTIMATE NORMAL
[2020-06-26] MEDS: CEFTRIAXONE 1,000 MG in DEXTROSE 5% WATER 50 ML IV SCH (13:15)
[2020-06-26] MEDS: ACETAMINOPHEN 325MG TABLET PO PRN (21:00)
[2020-06-26] MEDS: LACTULOSE 20G/30ML UDC PO SCH (21:01)
[2020-06-27] VITALS (111 sets, daily range): BP systolic 89–169; BP diastolic 21–92
[2020-06-27] MEDS: IPRATROPIUM/ALBUTEROL 0.5-3(2.5)MG/3ML NEB HHN SCH ×6 (00:07→20:18)
[2020-06-27] MEDS: PROPOFOL 10MG/ML 100ML 100 ML IV PRN ×3 (00:27→07:05)
[2020-06-27] MEDS: HYDROMORPHONE HCL/PF 2MG/ML CPJ IV PRN ×2 (00:34→05:48)
[2020-06-27] MEDS: METRONIDAZOLE 500 MG PREMIX 100 ML IV SCH ×3 (05:02→21:21)
[2020-06-27] MEDS: METHYLPREDNISOLONE SOD SUCC 40 MG/ML VIAL IV SCH ×4 (05:02→23:00)
[2020-06-27] MEDS: BLOOD SUGAR DIAGNOSTIC STRIP TEST SCH ×4 (05:47→23:23)
[2020-06-27] MEDS: SUCRALFATE 1 G/10 ML UDC PO SCH ×4 (05:47→21:21)
[2020-06-27] MEDS: INSULIN LISPRO 100 UNITS/ML SUBCUT SCH ×4 (05:48→23:24)
[2020-06-27 06:04] LABS: HEMOGLOBIN. 7.9 g/dL (12.0-16.0); MEAN CORPUSCULAR HEMOGLOBIN 27.8 pg (28.0-32.0); MEAN CORPUSCULAR VOLUME 87.5 fL (81.0-99.0); MEAN PLATELET VOLUME 7.9 fl (7.4-10.4); PLATELET 247 x1000/uL (130-400); RED BLOOD CELL COUNT 2.86 mill/uL (4.2-5.4); RED CELL DISTRIBUTION WIDTH 15.3 % (11.6-14.6)
[2020-06-27 06:11] LABS: CHLORIDE 107 mEq/L (98-107)
[2020-06-27 07:28] LABS: PLATELET ESTIMATE NORMAL
[2020-06-27] MEDS ORDERED: RACEPINEPHRINE 2.25% 0.5ML NEB VIAL HHN PRN (08:15)
[2020-06-27] MEDS ORDERED: RACEPINEPHRINE 2.25% 0.5ML NEB VIAL HHN SCH (08:15)
[2020-06-27] MEDS: BUDESONIDE 0.5MG/2ML NEB HHN SCH (08:48)
[2020-06-27] MEDS: FERROUS SULFATE 300MG/5ML UDC NG SCH ×2 (08:49→16:43)
[2020-06-27] MEDS: ASCORBIC ACID 500 MG TABLET NG SCH (08:49)
[2020-06-27] MEDS: PANTOPRAZOLE SODIUM 40 MG/VIAL IV SCH ×2 (08:49→16:43)
[2020-06-27] MEDS: DEXT 5%/LACTATED RINGERS 1,000 ML IV SCH ×2 (08:49→16:44)
[2020-06-27] MEDS: DOCUSATE SODIUM SUGAR FREE 100MG/10ML UDC PO SCH ×2 (08:49→16:43)
[2020-06-27] MEDS: NICARDIPINE 100 MG in SODIUM CHLORIDE 0.9% 60 ML IV PRN ×2 (09:18→18:26)
[2020-06-27] MEDS: CEFTRIAXONE 1,000 MG in DEXTROSE 5% WATER 50 ML IV SCH (14:46)
[2020-06-27] MEDS ORDERED: MORPHINE SULFATE 2 MG/ML CPJ (NOT FOR IM USE) IV PRN (17:30)
[2020-06-27] MEDS ORDERED: HYDROCODONE/ACETAMINOPHEN 10/325MG TABLET PO PRN (17:30)
[2020-06-27] MEDS ORDERED: HYDROMORPHONE HCL/PF 2MG/ML CPJ IV PRN (17:45)
[2020-06-27] MEDS: LACTULOSE 20G/30ML UDC PO SCH (21:21)
[2020-06-27] MEDS: MORPHINE SULFATE 4 MG/ML CPJ (NOT FOR IM USE) IV PRN (21:21)
[2020-06-27] MEDS: ONDANSETRON INJ IV PRN (21:21)
[2020-06-27] MEDS: AMLODIPINE 10MG TABLET PO SCH (22:59)
[2020-06-27] MEDS: CARVEDILOL 3.125 MG TABLET PO SCH (22:59)
[2020-06-28] VITALS (92 sets, daily range): BP systolic 101–154; BP diastolic 24–99
[2020-06-28] MEDS: MORPHINE SULFATE 4 MG/ML CPJ (NOT FOR IM USE) IV PRN ×8 (00:40→21:27)
[2020-06-28] MEDS: ONDANSETRON INJ IV PRN (00:40)
[2020-06-28] MEDS: IPRATROPIUM/ALBUTEROL 0.5-3(2.5)MG/3ML NEB HHN SCH ×6 (01:05→20:32)
[2020-06-28] MEDS: NICARDIPINE 100 MG in SODIUM CHLORIDE 0.9% 60 ML IV PRN ×4 (01:23→19:59)
[2020-06-28] MEDS: ONDANSETRON HCL 4MG/2ML INJ IV PRN ×4 (03:29→21:27)
[2020-06-28] MEDS: DEXT 5%/LACTATED RINGERS 1,000 ML IV SCH (03:35)
[2020-06-28] MEDS: METHYLPREDNISOLONE SOD SUCC 40 MG/ML VIAL IV SCH ×2 (05:47→10:42)
[2020-06-28] MEDS: METRONIDAZOLE 500 MG PREMIX 100 ML IV SCH ×3 (05:47→21:14)
[2020-06-28] MEDS: SUCRALFATE 1 G/10 ML UDC PO SCH ×4 (05:47→21:14)
[2020-06-28] MEDS: BLOOD SUGAR DIAGNOSTIC STRIP TEST SCH ×4 (05:48→21:14)
[2020-06-28] MEDS: INSULIN LISPRO 100 UNITS/ML SUBCUT SCH ×3 (05:49→21:15)
[2020-06-28 06:00] LABS: HEMATOCRIT. 28.3 % (36.0-48.0); MEAN CORPUSCULAR HEMOGLOBIN 27.5 pg (28.0-32.0); MEAN CORPUSCULAR VOLUME 86.9 fL (81.0-99.0); MEAN PLATELET VOLUME 7.6 fl (7.4-10.4); PLATELET 337 x1000/uL (130-400); RED BLOOD CELL COUNT 3.25 mill/uL (4.2-5.4); RED CELL DISTRIBUTION WIDTH 15.3 % (11.6-14.6)
[2020-06-28 06:20] LABS: CHLORIDE 109 mEq/L (98-107)
[2020-06-28] MEDS: DOCUSATE SODIUM SUGAR FREE 100MG/10ML UDC PO SCH ×2 (08:25→16:28)
[2020-06-28] MEDS: PANTOPRAZOLE SODIUM 40 MG/VIAL IV SCH ×2 (08:25→16:28)
[2020-06-28] MEDS: FERROUS SULFATE 300MG/5ML UDC NG SCH ×2 (08:25→16:28)
[2020-06-28] MEDS: ASCORBIC ACID 500 MG TABLET NG SCH (08:26)
[2020-06-28] MEDS: CARVEDILOL 3.125 MG TABLET PO SCH ×2 (08:26→21:14)
[2020-06-28] MEDS: AMLODIPINE 10MG TABLET PO SCH (08:26)
[2020-06-28 11:16] LABS: PLATELET ESTIMATE NORMAL
[2020-06-28] MEDS: CEFTRIAXONE 1,000 MG in DEXTROSE 5% WATER 50 ML IV SCH (13:20)
[2020-06-28] MEDS: DIPHENHYDRAMINE 50MG/ML VIAL IV PRN (17:27)
[2020-06-28] MEDS: LACTULOSE 20G/30ML UDC PO SCH (21:14)
[2020-06-28] MEDS: INSULIN GLARGINE UD 100 UNITS/ML SYR SUBCUT SCH (22:47)
[2020-06-29] VITALS (56 sets, daily range): BP systolic 106–153; BP diastolic 51–80
[2020-06-29] MEDS: IPRATROPIUM/ALBUTEROL 0.5-3(2.5)MG/3ML NEB HHN SCH ×6 (00:23→22:25)
[2020-06-29] MEDS: NICARDIPINE 100 MG in SODIUM CHLORIDE 0.9% 60 ML IV PRN (02:10)
[2020-06-29] MEDS: METRONIDAZOLE 500 MG PREMIX 100 ML IV SCH ×3 (05:35→22:07)
[2020-06-29] MEDS: INSULIN LISPRO 100 UNITS/ML SUBCUT SCH ×4 (05:35→21:18)
[2020-06-29] MEDS: SUCRALFATE 1 G/10 ML UDC PO SCH ×4 (05:35→21:18)
[2020-06-29] MEDS: CLONIDINE 0.1MG TABLET PO PRN (05:35)
[2020-06-29] MEDS: BLOOD SUGAR DIAGNOSTIC STRIP TEST SCH ×4 (05:35→21:21)
[2020-06-29] MEDS: MORPHINE SULFATE 4 MG/ML CPJ (NOT FOR IM USE) IV PRN ×5 (07:11→23:37)
[2020-06-29] MEDS: ONDANSETRON HCL 4MG/2ML INJ IV PRN ×2 (07:11→16:33)
[2020-06-29] MEDS: PANTOPRAZOLE SODIUM 40 MG/VIAL IV SCH ×2 (08:30→17:22)
[2020-06-29] MEDS: METHYLPREDNISOLONE SOD SUCC 40 MG/ML VIAL IV SCH (08:30)
[2020-06-29] MEDS: FERROUS SULFATE 300MG/5ML UDC NG SCH ×2 (08:30→17:22)
[2020-06-29] MEDS: DOCUSATE SODIUM SUGAR FREE 100MG/10ML UDC PO SCH ×2 (08:30→17:23)
[2020-06-29] MEDS: AMLODIPINE 10MG TABLET PO SCH (08:31)
[2020-06-29] MEDS: CARVEDILOL 3.125 MG TABLET PO SCH ×2 (08:32→21:20)
[2020-06-29] MEDS: ASCORBIC ACID 500 MG TABLET NG SCH (08:32)
[2020-06-29] MEDS: LISINOPRIL 40MG TABLET PO SCH (11:54)
[2020-06-29] MEDS: CEFTRIAXONE 1,000 MG in DEXTROSE 5% WATER 50 ML IV SCH (11:54)
[2020-06-29] MEDS: INSULIN GLARGINE UD 100 UNITS/ML SYR SUBCUT SCH (21:17)
[2020-06-29] MEDS: LACTULOSE 20G/30ML UDC PO SCH (21:18)
[2020-06-30] VITALS (7 sets, daily range): BP systolic 104–172; BP diastolic 70–85
[2020-06-30] MEDS: CLONIDINE 0.1MG TABLET PO PRN (00:10)
[2020-06-30] MEDS: IPRATROPIUM/ALBUTEROL 0.5-3(2.5)MG/3ML NEB HHN SCH ×4 (02:08→08:00)
[2020-06-30] MEDS: MORPHINE SULFATE 4 MG/ML CPJ (NOT FOR IM USE) IV PRN ×7 (02:28→21:05)
[2020-06-30] MEDS: BLOOD SUGAR DIAGNOSTIC STRIP TEST SCH ×4 (05:09→20:57)
[2020-06-30] MEDS: INSULIN LISPRO 100 UNITS/ML SUBCUT SCH ×4 (05:09→20:57)
[2020-06-30] MEDS: METRONIDAZOLE 500 MG PREMIX 100 ML IV SCH (06:14)
[2020-06-30] MEDS: SUCRALFATE 1 G/10 ML UDC PO SCH ×4 (06:14→21:00)
[2020-06-30 06:50] LABS: HEMATOCRIT. 28.1 % (36.0-48.0); HEMOGLOBIN. 9.3 g/dL (12.0-16.0); MEAN CORPUSCULAR HEMOGLOBIN 28.7 pg (28.0-32.0); MEAN PLATELET VOLUME 7.1 fl (7.4-10.4); PLATELET 305 x1000/uL (130-400); RED BLOOD CELL COUNT 3.23 mill/uL (4.2-5.4); RED CELL DISTRIBUTION WIDTH 14.8 % (11.6-14.6)
[2020-06-30] MEDS: CARVEDILOL 3.125 MG TABLET PO SCH ×2 (09:00→20:57)
[2020-06-30] MEDS: AMLODIPINE 10MG TABLET PO SCH (09:00)
[2020-06-30] MEDS: DOCUSATE SODIUM SUGAR FREE 100MG/10ML UDC PO SCH ×2 (09:00→16:07)
[2020-06-30] MEDS ORDERED: MAGNESIUM CITRATE 300ML SOLUTION PO NR (09:00)
[2020-06-30] MEDS: LISINOPRIL 40MG TABLET PO SCH (09:00)
[2020-06-30] MEDS: METHYLPREDNISOLONE SOD SUCC 40 MG/ML VIAL IV SCH (09:20)
[2020-06-30] MEDS: ASCORBIC ACID 500 MG TABLET NG SCH (09:20)
[2020-06-30] MEDS: PANTOPRAZOLE SODIUM 40 MG/VIAL IV SCH ×2 (09:20→16:48)
[2020-06-30] MEDS: FERROUS SULFATE 300MG/5ML UDC NG SCH ×2 (09:20→16:48)
[2020-06-30 19:06] LABS: PLATELET ESTIMATE NORMAL
[2020-06-30] MEDS: LACTULOSE 20G/30ML UDC PO SCH (21:00)
[2020-07-01] VITALS: BP 179/71
[2020-07-01] MEDS: INSULIN GLARGINE UD 100 UNITS/ML SYR SUBCUT SCH (00:36)
[2020-07-01] MEDS: MORPHINE SULFATE 4 MG/ML CPJ (NOT FOR IM USE) IV PRN ×4 (01:44→12:09)
[2020-07-01] MEDS: CLONIDINE 0.1MG TABLET PO PRN (01:45)
[2020-07-01 04:00] VITALS: BP 161/74
[2020-07-01] MEDS: SUCRALFATE 1 G/10 ML UDC PO SCH ×2 (06:25→12:00)
[2020-07-01] MEDS: INSULIN LISPRO 100 UNITS/ML SUBCUT SCH ×2 (06:26→12:03)
[2020-07-01] MEDS: BLOOD SUGAR DIAGNOSTIC STRIP TEST SCH ×2 (06:26→12:03)
[2020-07-01 06:50] LABS: BASOPHILS % 0.3 % (0.0-2.0); EOSINOPHILS % 0.2 % (0.0-5.0); HEMATOCRIT. 32.7 % (36.0-48.0); HEMOGLOBIN. 10.7 g/dL (12.0-16.0); LYMPHOCYTES % 19.6 % (20.0-50.0); MEAN CORPUSCULAR HEMOGLOBIN 28.5 pg (28.0-32.0); MEAN CORPUSCULAR VOLUME 87.2 fL (81.0-99.0); MEAN PLATELET VOLUME 7.4 fl (7.4-10.4); NEUTROPHILS % 74.9 % (40.0-76.0); PLATELET 322 x1000/uL (130-400); RED BLOOD CELL COUNT 3.75 mill/uL (4.2-5.4); RED CELL DISTRIBUTION WIDTH 14.6 % (11.6-14.6)
[2020-07-01 08:00] VITALS: BP 148/64
[2020-07-01] MEDS: FERROUS SULFATE 300MG/5ML UDC NG SCH (08:51)
[2020-07-01] MEDS: PANTOPRAZOLE SODIUM 40 MG/VIAL IV SCH (08:51)
[2020-07-01] MEDS: ASCORBIC ACID 500 MG TABLET NG SCH (08:52)
[2020-07-01] MEDS: METHYLPREDNISOLONE SOD SUCC 40 MG/ML VIAL IV SCH (08:52)
[2020-07-01] MEDS: LISINOPRIL 40MG TABLET PO SCH (08:57)
[2020-07-01] MEDS: AMLODIPINE 10MG TABLET PO SCH (08:58)
[2020-07-01] MEDS: CARVEDILOL 3.125 MG TABLET PO SCH (08:58)
[2020-07-01] MEDS: DOCUSATE SODIUM SUGAR FREE 100MG/10ML UDC PO SCH (09:00)
[2020-07-01] MEDS: IPRATROPIUM/ALBUTEROL 0.5-3(2.5)MG/3ML NEB HHN SCH ×2 (09:25→13:02)
[2020-07-01 12:09] VITALS: BP 148/64
== END 2020-07-01 14:04 | disposition home health service (06) | DRG 304 ==
LOC: ER 12:55 → 5WST 15:44 → ENRESERV 21:01 → MICUSO 06-21 08:02 → 5WST 06-29 15:00
PROVIDERS: ADMIT Internal Medicine; ATTEND Internal Medicine
PROC: 0SG10K1 Fusion of 2 or more Lumbar Vertebral Joints with Nonautologous Tissue Substitute, Posterior Approach, Posterior Column, Open Approach (ICD-10-PCS; principal; 2020-06-22)
PROC: 01NB0ZZ Release Lumbar Nerve, Open Approach (ICD-10-PCS; 2020-06-22)
PROC: 4A11X4G Monitoring of Peripheral Nervous Electrical Activity, Intraoperative, External Approach (ICD-10-PCS; 2020-06-22)
PROC: 0BH17EZ Insertion of Endotracheal Airway into Trachea, Via Natural or Artificial Opening (ICD-10-PCS; 2020-06-22)
PROC: 5A1955Z Respiratory Ventilation, Greater than 96 Consecutive Hours (ICD-10-PCS; 2020-06-22)
PROC: 02HV33Z Insertion of Infusion Device into Superior Vena Cava, Percutaneous Approach (ICD-10-PCS; 2020-06-23)
PROC: B548ZZA Ultrasonography of Superior Vena Cava, Guidance (ICD-10-PCS; 2020-06-23)
PROC: 30233N1 Transfusion of Nonautologous Red Blood Cells into Peripheral Vein, Percutaneous Approach (ICD-10-PCS; 2020-06-24)
DX: M48.061 Spinal stenosis, lumbar region without neurogenic claudication (principal); J96.00 Acute respiratory failure, unspecified whether with hypoxia or hypercapnia; G82.20 Paraplegia, unspecified; K22.2 Esophageal obstruction; G89.29 Other chronic pain; I10 Essential (primary) hypertension; J45.909 Unspecified asthma, uncomplicated; R32 Unspecified urinary incontinence; F17.200 Nicotine dependence, unspecified, uncomplicated; M25.78 Osteophyte, vertebrae; R61 Generalized hyperhidrosis; R15.9 Full incontinence of feces; I25.10 Atherosclerotic heart disease of native coronary artery without angina pectoris; E66.01 Morbid (severe) obesity due to excess calories; Z20.822 Contact with and (suspected) exposure to COVID-19; E11.65 Type 2 diabetes mellitus with hyperglycemia; R13.10 Dysphagia, unspecified; D50.9 Iron deficiency anemia, unspecified; M47.26 Other spondylosis with radiculopathy, lumbar region; J38.4 Edema of larynx; T38.0X5A Adverse effect of glucocorticoids and synthetic analogues, initial encounter; D72.829 Elevated white blood cell count, unspecified; K92.2 Gastrointestinal hemorrhage, unspecified; Z87.892 Personal history of anaphylaxis; Z91.81 History of falling; Z79.84 Long term (current) use of oral hypoglycemic drugs; Z88.8 Allergy status to other drugs, medicaments and biological substances; Z91.041 Radiographic dye allergy status; Z91.013 Allergy to seafood; Z79.899 Other long term (current) drug therapy; Y92.89 Other specified places as the place of occurrence of the external cause
CPT/HCPCS: 36415; 36600; 70490; 71045; 72100; 72141; 72158; 74018; 76000; 76937; 80048; 80053; 80061; 81003; 82375; 82607; 82728; 82746; 82805; 82962; 83036; 83540; 83550; 83880; 84439; 84443; 84478; 84484; 85014; 85018; 85025; 85044; 86850; 86900; 86920; 87070; 87426; 88305; 88311; 92610; 93005; 94002; 94003; 94640; 95863; 95925; 95926; 95928; 95929; 97110; 97162; 97166; 97530; 97535; 99291; A6261; A9577; C1725; C1893; C9113; J0360; J0690; J0696; J1100; J1170; J1200; J1650; J1815; J2250; J2270; J2405; J2704; J2710; J2920; J2930; J3480; J3490; J7040; J7042; J7050; J7060; J7070; J7121; J7626; P9016; P9047; C1762